=== PATIENT | female | born 1975 | race Caucasian/White ===

== ENCOUNTER → 2021-04-05 18:38 | Outpatient (ROUT) | payer OTHER, SELFPAY ==
[2021-04-05 19:32] LABS: Add Manual Diff / Slide Review NO; Basophils Absolute Auto 100 /uL (0-100); Basophils Percent Auto 1.1 % (0-2); Eosinophils Absolute Auto 400 /uL (0-450); Eosinophils Percent Auto 3.6 % (2-4); Hematocrit 43.6 % (36-46); Hemoglobin 14.5 g/dL (12.0-16.0); Lymphocytes Absolute Auto 2600 /uL (1100-4500); Lymphocytes Percent Auto 24.4 % (25-40); Mean Corpuscular HGB Conc 33.2 % (30-36); Mean Corpuscular Hemoglobin 30.5 PG (26-34); Mean Corpuscular Volume 91.9 fL (80-100); Monocytes Absolute Auto 900 /uL (0-900); Monocytes Percent Auto 8.1 % (3-14); Neutrophils Absolute Auto 6600 /uL (1500-7000); Neutrophils Percent Auto 62.8 % (50-75); Platelet Count 333 X10^3/uL (150-400); Red Blood Cell Count 4.74 X10^6/uL (4.0-5.2); Red Cell Distribution Width 12.9 % (11.6-14.8); White Blood Cell Count 10.5 X10^3/uL (4.5-11.0)
[2021-04-05 19:41] LABS: C-Reactive Protein Quant 0.7 mg/dL (<1.0); Rheumatoid Factor < 8.6 IU/mL (<12.0)
[2021-04-09 14:08] LABS: ANA Screen, IFA Negative (.)
== END ==
PROVIDERS: Visit Provider Internal Medicine
DX: M25.50 Pain in unspecified joint (principal)
CPT/HCPCS: 85025; 86038; 86140; 86430

== ENCOUNTER → 2022-04-11 12:14 | Outpatient (CLI) | payer OTHER, SELFPAY ==
--- NOTE | 2022-04-11 12:15 | DI.RAD.S_ITS ---
PROCEDURE: XR FINGER LT MIN 2V INDICATIONS: left 5th finger pain TECHNIQUE: AP hand, 2 views of the 5th finger(s) acquired. COMPARISON: None. FINDINGS: Bones: No fractures or dislocations. No suspicious bony lesions. Soft tissues: No suspicious soft tissue calcifications. IMPRESSION: No visualized acute fracture or dislocation. However, if clinical concern and/or pain persist, short interval imaging followup in 7-10 days is recommended, as occult injury cannot be definitively excluded. Dictated by: Harmony Correa M.D. on 04/11/2022 at 12:36 Approved by: Harmony Correa M.D. on 04/11/2022 at 12:36
== END ==
PROVIDERS: PCP Internal Medicine; Referring Provider Physician Assistant; Visit Provider Physician Assistant
DX: S69.92XA Unspecified injury of left wrist, hand and finger(s), initial encounter (principal); X58.XXXA Exposure to other specified factors, initial encounter
CPT/HCPCS: 73140

== ENCOUNTER → 2022-11-28 14:40 | Outpatient (CLI) | payer OTHER, SELFPAY ==
--- NOTE | 2022-11-28 | DI.MG.S_ITS ---
BILATERAL DIGITAL SCREENING MAMMOGRAM 3D/2D WITH CAD: 11/28/2022 CLINICAL: Routine screening. Comparison is made to exams dated: 01/04/2021 mammogram, 06/01/2019 mammogram, 10/31/2016 mammogram, and 12/04/2015 mammogram - Outside facility. Both breasts are heterogeneously dense, which may obscure small masses (category c / 51-75% glandular tissue). Current study was also evaluated with a Computer Aided Detection (CAD) system. No significant masses, calcifications, or other findings are seen in either breast. There has been no significant interval change. IMPRESSION: NEGATIVE There is no mammographic evidence of malignancy. A 1 year screening mammogram is recommended. Based on the Tyrer Cuzick model (a risk assessment model) the patient's lifetime risk is 8.3% and her 10 year risk is 1.8%. According to the ACR, ACS, and NCCN guidelines, an annual breast MRI exam along with mammogram is recommended if the patient's lifetime risk is 20% or greater. This exam was interpreted at Station ID: [id number]. NOTE: For mammograms, a report in lay terms will be sent to the patient. Approximately 15% of breast malignancies will not be visualized mammographically. In the management of a palpable breast mass, a negative mammogram must not discourage biopsy of a clinically suspicious lesion. Electronically Signed By: Angelina oliver/jana:11/28/2022 16:16:21 letter sent: Normal Exam ACR BI-RADS Category 1: Negative 3341F
== END ==
PROVIDERS: PCP Internal Medicine; Referring Provider Internal Medicine; Visit Provider Internal Medicine
DX: Z12.31 Encounter for screening mammogram for malignant neoplasm of breast (principal)
CPT/HCPCS: 77063; 77067

== ENCOUNTER 2023-02-17 20:19 | Emergency (ER) | payer OTHER, SELFPAY ==
[2023-02-17 20:29] VITALS: BP 147/86; PULSE 80; RESP 18; TEMP 36.7; O2SAT 98; BMI 35.2
[2023-02-17 20:54] LABS: Bacteria Urine Moderate (10-30); RBC Urine 30-100/HPF (0-5/HPF); Squamous Epithelial Cell Urine 0-1 /HPF (0-5/HPF); WBC Urine 30-100/HPF (0-5/HPF)
[2023-02-17 20:55] LABS: Culture Indicated Urine Specimen Cultured
--- NOTE | 2023-02-17 21:25 | ED_ITS ---
HPI - Female Genitourinary General Chief complaint: Urogenital-Female Stated complaint: sudden onset of UTI symptoms Time Seen by Provider: 02/17/23 20:32 Source: patient Mode of arrival: Ambulatory History of Present Illness HPI Narrative: 47-year-old female nonsmoker with noncontributory medical history presents with a chief complaint of a few hours of dysuria, frequency and urgency as well as hematuria. She denies systemic complaints such as fever or chills nor nausea or vomiting. She denies any back pain. She states that her last urinary tract infection was when she was about 13 years old and denies any recent antibiotic use. She is otherwise well and free of complaint denies any runny nose, sore throat or cough. She has no chest pain or shortness of breath and denies any vaginal bleeding discharge. Related Data Home Medications Medication Instructions Recorded Confirmed beclomethasone dipropionate 40 1 inh inhalation BID 03/27/21 03/27/21 mcg/actuation HFA breath activated aerosol (Qvar RediHaler) fluoxetine 10 mg capsule (Prozac) 10 mg PO DAILY 03/27/21 03/27/21 lamotrigine 150 mg tablet 75 mg PO DAILY 03/27/21 03/27/21 trazodone PO 03/27/21 03/27/21 Previous Rx's Medication Instructions Recorded cephalexin 500 mg capsule 500 mg PO BID #10 caps 02/17/23 fluconazole 150 mg tablet 150 mg PO Q3D 2 doses #2 tabs 02/17/23 Allergies Allergy/AdvReac Type Severity Reaction Status Date / Time No Known Drug Allergies Allergy Unverified 03/27/21 14:09 Review of Systems Review of Systems Narrative: GENERAL: Denies chills, fatigue, malaise, fever, sweats. HEENT: Denies sinus pain, ear pain, sore throat, difficulty swallowing, dizziness. RESPIRATORY: Denies dyspnea, cough, wheezing, hemoptysis, sputum. CARDIOVASCULAR: Denies chest pain, palpitations, orthopnea, edema, GASTROINTESTINAL: Denies nausea, vomiting, abdominal pain, diarrhea, constipation, melena. : See HPI MUSCULOSKELETAL: denies weakness, joint pain, or bony pain SKIN: Denies rash, skin lesions, or other NEUROLOGIC: Denies weakness, headache, numbness, change in speech, confusion, seizures, incoordination. PSYCHIATRIC: No concerning psychosocial issues. 12 point review of systems is negative except for those stated above Patient History alcohol intake frequency: holidays/special occasions only Substance Use Type: does not use Exam Narrative Exam Narrative: GEN: AOx3 and in mild distress EYES: Pupils are equal, round, and reactive to light and accommodation. Extraoccular muscles are intact bilaterally. There is no subconjunctival hemorrhage or exudate. CHEST: Lungs are clear to auscultation bilaterally and free of wheezes, rales, or rhonchi. Heart rate is regular rhythm, there are no murmurs, clicks, rubs, or gallops. There is no chest wall tenderness. ABD: Abdomen is soft and nontender. There is no guarding or rebound. Bowel sounds are normal in all 4 quadrants. There is no mass or organomegaly. BACK: No CVA tenderness EXT: Full painless ROM of all extremities with no loss of sensation or strength. SKIN: Warm, pink, and dry. No erythema or rash Initial Vital Signs Initial Vital Signs: Vital Signs Temperature 98.1 F 02/17/23 20:29 Pulse Rate 80 02/17/23 20:29 Respiratory Rate 18 02/17/23 20:29 Blood Pressure 147/86 H 02/17/23 20:29 Pulse Oximetry 98 02/17/23 20:29 Oxygen Delivery Method Room Air 02/17/23 20:29 Course Orders Ordered: ED Orders 02/17/23 20:45 Urine Culture Stat Urine Microscopic Stat Discontinued Medications Cefazolin Sodium (Cephalexin 250 Mg Cap Prepack) 1 bottle MISC SEEINSTR ONE Stop: 02/17/23 21:22 Last Admin: 02/17/23 21:31 Dose: 8 cap Documented By: RB Ondansetron HCl (Ondansetron 4 Mg Odt Prepack) 1 bottle MISC SEEINSTR ONE Stop: 02/17/23 21:22 Last Admin: 02/17/23 21:32 Dose: 1 bottle Documented By: RB Phenazopyridine HCl (Phenazopyridine 100 Mg Tablet) 200 mg PO NOW ONE Stop: 02/17/23 21:22 Last Admin: 02/17/23 21:32 Dose: 200 mg Documented By: RB Vital Signs Vital signs: Vital Signs - 8 hr 02/17/23 20:29 Temperature 98.1 F Pulse Rate 80 Respiratory Rate 18 Blood Pressure 147/86 H Pulse Oximetry 98 Oxygen Delivery Method Room Air MDM - Female Genitourinary Lab Data Labs: Lab Results 02/17/23 Range/Units 20:45 Urine RBC 30-100/hpf H (0-5/HPF) Urine WBC 30-100/hpf H (0-5/HPF) Ur Squamous Epith Cells 0-1 /hpf (0-5/HPF) Urine Bacteria Moderate (10-30) H (None) Ur Culture Indicated? Specimen cultured MDM Narrative Medical decision making narrative: [47] year old patient presents with dysuria, frequency and urgency Multiple etiologies for patient's symptoms considered including, but not limited to: [UTI versus pyelonephritis versus other] Prior Charts reviewed in our EMR Primary Historian: patient Labs reviewed and interpreted by myself: UA convincing for UTI Patient with classic history and physical for urinary tract infection and urine that confirms the diagnosis. She has no systemic complaints to suggest upper tract infection. Antibiotics started tonight and prescription sent to her pharmacy of choice Findings and discharge diagnosis discussed with patient/family followed by verbalization of understanding Return precautions discussed with patient/family whom verbalize understanding of diagnosis and plan Discharge Plan Departure Patient Disposition: Home Clinical Impression: Urinary tract infection Instructions: DI for Urinary Tract Infection (UTI) Activity Restrictions/Additional Instructions: *You have been diagnosed with [urinary tract infection] *What to do: *Please continue to take your regular medications as directed. [x ] New medication prescriptions sent to your pharmacy: [ [facility]] [ ] New medication written as a paper prescription [ ] No new medications given *Please follow up with your primary care provider in 2-3 days, call for an appointment. Let them know you were seen in the Emergency Department and that we ask that you be seen in follow up. We will electronically transmit a record of today's note if your PCP is in our system *If you do not have a primary care provider please contact the [facility] Resource line at [phone]. They will ask some questions about your medical history and help get you set up with a doctor in the community. *Return to Emergency Department if you should have any new, worsening or concerning symptoms, such as [fever greater than 101 F, shaking chills, worsening pain, persistent vomiting or other bothersome symptoms] Prescriptions: New cephalexin 500 mg capsule 500 mg PO BID Qty: 10 0RF fluconazole 150 mg tablet 150 mg PO Q3D Qty: 2 0RF Rx Instructions: may repeat second dose 72 hrs after first dose if symptoms persist No Action lamotrigine 150 mg tablet 75 mg PO DAILY trazodone PO Qvar RediHaler 40 mcg/actuation HFA aerosol breath activated 1 inh inhalation BID fluoxetine [Prozac] 10 mg capsule 10 mg PO DAILY Referrals: Roseline Guevara MD [Primary Care Provider] - Stand Alone Forms: Patient Portal/API
[2023-02-17] MEDS: cephALEXin 250 MG CAP PREPACK 1 BOTTLE MISC (21:31)
[2023-02-17] MEDS: PHENAZOPYRIDINE 100 MG TABLET 200 MG PO (21:32)
[2023-02-17] MEDS: ONDANSETRON 4 MG ODT PREPACK 1 BOTTLE MISC (21:32)
[2023-02-17 21:33] VITALS: BP 159/90; PULSE 77; RESP 18; O2SAT 100
== END 2023-02-17 21:39 | disposition home or self-care (01) ==
PROVIDERS: Emergency Provider Emergency Medicine; PCP Internal Medicine
DX: N39.0 Urinary tract infection, site not specified (principal)
CPT/HCPCS: 81015; 87077; 87086; 87186; 99283

== ENCOUNTER → 2025-03-22 10:36 | Outpatient (CLI) | payer OTHER, SELFPAY ==
--- NOTE | 2025-03-22 | DI.RAD.S_ITS ---
PROCEDURE: XR KNEE RT 1TO2V INDICATIONS: ACUTE RIGHT KNEE PAIN TECHNIQUE: To views of the knee were acquired. COMPARISON: [facility], CR, XR KNEE STANDING BI, 03/22/2025, 10:45. FINDINGS: Bones: No fractures or dislocations. No suspicious bony lesions. Soft tissues: No joint effusion. No suspicious soft tissue calcifications. IMPRESSION: No acute osseous abnormality. If pain persists with conservative management, consider repeat x-ray in 10-14 days or cross-sectional imaging. Dictated by: Prasanna Harris M.D. on 03/22/2025 at 14:44 Approved by: Prasanna Harris M.D. on 03/22/2025 at 14:44
--- NOTE | 2025-03-22 | DI.RAD.S_ITS ---
PROCEDURE: XR KNEE STANDING BI INDICATIONS: ACUTE PAIN RIGHT KNEE TECHNIQUE: 1 views of the knee(s) COMPARISON: [facility], CR, XR KNEE RT 1TO2V, 03/22/2025, 10:46. FINDINGS: Bones: No acute fractures or dislocations. Patellar alignment is normal on the sunrise view. No suspicious bony lesions. Joint spaces appear normal with weightbearing. Soft tissues: No suspicious soft tissue calcification. IMPRESSION: No acute osseous abnormality. No significant degenerative changes. If pain persists with conservative management, consider repeat x-ray in 10-14 days or cross-sectional imaging. Dictated by: Prasanna Harris M.D. on 03/22/2025 at 14:43 Approved by: Prasanna Harris M.D. on 03/22/2025 at 14:44
== END ==
LOC: RAD 10:38
PROVIDERS: PCP Family Medicine; Referring Provider Family Medicine; Visit Provider Family Medicine
DX: M25.561 Pain in right knee (principal)
CPT/HCPCS: 73560; 73565

== ENCOUNTER → 2025-05-20 14:07 | Outpatient (CLI) | payer OTHER, SELFPAY ==
--- NOTE | 2025-05-20 14:09 | DI.MRI.S_ITS ---
PROCEDURE: MR KNEE RT WO CON INDICATIONS: RT KNEE PAIN TECHNIQUE: Noncontrast sagittal PD fast spin echo and T2 fast spin echo with fat saturation, sagittal 3-D FLASH with fat saturation; coronal T1 spin echo and PD fast spin echo with fat saturation, and axial PD fast spin echo with fat saturation through the knee. COMPARISON: [facility], CR, XR KNEE RT 1TO2V, 03/22/2025, 10:46. [facility], CR, XR KNEE STANDING BILATERAL, 05/04/2025, 14:25. FINDINGS: Image quality: Excellent. Anterior cruciate ligament: Intact. Posterior cruciate ligament: Intact. Medial collateral ligament: Mild edema adjacent to the medial collateral ligament may indicate a low-grade sprain. No discontinuity of ligament fibers is seen. Lateral collateral ligament: Intact. Medial meniscus: Intact. Lateral meniscus: Intact. Medial and lateral tendons: The semimembranosus tendon insertions appear intact. Visualized portions of the pes anserinus tendons appear normal. The popliteus tendon is intact. Iliotibial band appears normal. Anterior structures: The quadriceps and patellar tendons appear intact. No patellar subluxation. No femoral trochlear dysplasia or ventral trochlear prominence. No edema in the infrapatellar fat pad. Bones: No bone marrow contusions or fractures. Medial femorotibial cartilage: Mild partial-thickness cartilage thinning in the weight-bearing portion. Lateral femorotibial cartilage: Mild surface cartilage irregularity. Patellofemoral cartilage: High-grade partial-thickness cartilage loss at the median ridge and medial facet of the patella with subchondral cystic changes. Mild to moderate partial-thickness cartilage irregularity in the trochlea. Soft tissues: Lobular cyst measuring up to 13 x 5 x 12 mm is seen along the anterior to the medial femorotibial joint line. There is physiologic knee joint fluid. Trace medial popliteal cyst. The musculature surrounding the knee is age-appropriate in bulk. Varicose veins are noted in the lateral subcutaneous tissues. IMPRESSION: 1. Grade 1 sprain of the proximal to mid medial collateral ligament. 2. 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 Mild grade 2 cartilage thinning and cartilage irregularity in the medial and lateral femorotibial compartments. 3. Cruciate ligaments are intact. No acute trabecular bone injury. No meniscal tear is seen. 4. Small lobular cyst anterior to the medial femorotibial joint line measuring up to 13 mm is most likely a ganglion cyst versus parameniscal cyst or loculated joint fluid. Approved by: Marcin Iniguez M.D. on 05/23/2025 at 9:02
== END ==
LOC: MRI 14:08
PROVIDERS: PCP Family Medicine; Referring Provider Family Medicine; Visit Provider Orthopaedic Surgery Foot and Ankle Surgery
DX: S83.241A Other tear of medial meniscus, current injury, right knee, initial encounter (principal); S83.411A Sprain of medial collateral ligament of right knee, initial encounter; M22.41 Chondromalacia patellae, right knee; M25.861 Other specified joint disorders, right knee; X58.XXXA Exposure to other specified factors, initial encounter
CPT/HCPCS: 73721